=== PATIENT | male | born 1950 | race Caucasian/White ===

== ENCOUNTER 2020-05-21 14:39 | Outpatient (RCR) | payer MEDICARE, SELFPAY ==
[2014-02-17 01:31] VITALS: BMI 32.1
[2020-05-21] MEDS: COVID-19 VACC, MRNA(PFIZER)/PF 30 MCG/0.3 ML SYRINGE IM (10:42)
== END 2020-05-21 23:59 ==
LOC: IMMUN 14:39
PROVIDERS: PCP Family Medicine; Visit Provider Family Medicine
DX: Z23 Encounter for immunization (principal)
CPT/HCPCS: 0001A